=== PATIENT | female | born 1955 | race Caucasian/White ===

== ENCOUNTER 2018-06-06 11:47 | Inpatient (IN) | payer MEDICARE, OTHER ==
[2018-06-06] MEDS ORDERED: HYDROmorphone 0.5 MG/0.5 ML SYRINGE ONE (13:32)
[2018-06-06] MEDS ORDERED: Ampicillin/Sulbactam 3 GM in Sodium Chloride 0.9% 100 ML IVPB ONE (15:30)
[2018-06-06] MEDS ORDERED: Dexamethasone 4 mg/ml Vial ONE (15:40)
[2018-06-06] MEDS ORDERED: clonazePAM 1 MG TAB PO PRN ×2 (15:56→17:19)
[2018-06-06] MEDS ORDERED: Ampicillin/Sulbactam 1.5 GM in Sodium Chloride 0.9% 100 ML IVPB SCH ×2 (16:00→22:00)
[2018-06-06] MEDS ORDERED: Loperamide HCl 2 MG CAP PO PRN (17:19)
[2018-06-06] MEDS ORDERED: hydrALAZINE 20 MG/ML VIAL SLOW IVP PRN (17:30)
[2018-06-06 17:39] VITALS: BMI 25.9
[2018-06-06] MEDS: Nicotine 21 MG PATCH TD SCH (17:43)
[2018-06-06] MEDS ORDERED: Ampicillin/Sulbactam 3 GM in Sodium Chloride 0.9% 100 ML IVPB SCH (18:00)
--- NOTE | 2018-06-06 18:20 | HP ---
DATE OF CONSULTATION: 06/06/2018 CHIEF COMPLAINT: Swelling of her left side of the face. HISTORY OF PRESENT ILLNESS: Patient is a very pleasant 63-year-old female with a history of hyperten suzette and depression who presented to the hospital with complaints of left-sided facial swelling going on for about a week. The patient stated that she noticed some swelling of her left side last week, she did not seek attention. She just treated with [id number] medications, however, patient sta justyna that her left-sided facial swelling worsened for the past couple of days. The patient did go out to the ER where she was discharged home with some oral antibiotics. The patient stated that she onl y took maybe a dose or two doses of her antibiotics; however, she stated that her swelling worsened t o the point that she just could not even eat anything, so she came in to the ER for further evaluatio n. Patient denies any fevers or chills at home. The patient does states that she has poor dentition . She did have a CT of the face at the [facility] where it was noted to have left facial cellulitis with periosteal abscess involving the left angle of the mandible. There is extensive edward a involving the anterior aspect of the neck involving the strap muscles and platysma with some edema extending to the anterior mediastinal. She also had reactive lymphadenopathy. PAST MEDICAL HISTORY: Hypertension, depression. PAST SURGICAL HISTORY: She had left ankle surgery. SOCIAL HISTORY: She smokes a pack a day and she also drinks 6 packs of beer daily. Denies any drug use. FAMILY HISTORY: Father at the age of 32 with genetic heart condition. HOME MEDICATIONS: As the following: She takes omega 3 fatty acids 1 daily. She takes aspirin 81 mg daily. She takes clonazepam 1 b.i.d., lisinopril 20 mg daily. She takes Imodium 2 p.o. p.r.n., ome prazole 40 mg daily, Sertraline 100 mg p.o. daily. VESIcare 100 mg daily, and also 50 mg of tramadol . REVIEW OF SYSTEMS: All negative except for the ones mentioned above in the HPI. PHYSICAL EXAMINATION: VITAL SIGNS: She is afebrile at 99.0, her blood pressure is 114/91, 77 pulse, 16 respirations, 96% o n room air. GENERAL: She is awake, alert, oriented x3. HEENT: She has significant swelling on her left side of the facial extending all the way to the righ t lower neck area. I am unable to appreciate any lymphadenopathy. Patient has limited opening of he r mouth, but she has got severe redness and tenderness upon palpation of her left buccal cavity. She has significant dental cavities all over. LUNGS: Clear to auscultation. No rhonchi, wheezes noted. CARDIOVASCULAR: S1, S2 present. No murmurs, rubs or gallops. ABDOMEN: Soft, nontender. Bowel sounds are present x2. EXTREMITIES: No edema. Pedal are pulses present x2. NEUROLOGIC: No deficits noted. SKIN: No breakdown noted. LABORATORY DATA: As of the following: WBCs of 6.1, hemoglobin of 13.9, hematocrit of 43.4, platelet s of 192 and her chemistry indicates sodium of 141, potassium of 5.0, BUN 6, creatinine 0.70. Her al kaline phosphatase is mildly elevated at 174. ASSESSMENT AND PLAN: The patient is a very pleasant 63-year-old female who comes to the hospital wit h extensive left facial pain and swelling. 1. Facial abscess based on CT findings. We will start patient on Unasyn and also start her on some Decadron. Also, ENT has been consulted. We will start on some gentle IV fluids, also continue to mo nitor. We will appreciate during surgery to obtain cultures for further tapering down of the antibio tics. The patient currently does not appear to be in any respiratory distress; however, if she does happen to have respiratory distress, a low threshold to transfer her to the ICU. We will also obtain a chest x-ray just to make sure since she has a history of smoking. The patient denies any history of strokes or heart attacks; however, she does have a history of hypertension and she is a smoker. 2. Hypertension. We will continue on her home medications. 3. Depression. We will continue her home medications. 4. Deep venous thrombosis prophylaxis. We will put the patient on sequential compression devices fo r now.
--- NOTE | 2018-06-06 18:56 | RAD ---
RADIOGRAPH CHEST 1 VIEW: Date: 06/06/2018 Time: 6:14 p.m. HISTORY: A 63-year-old female with dyspnea. COMPARISON: None available. FINDINGS: There is no cardiomegaly, pulmonary edema, or pulmonary venous engorgement. No pneumothorax. The la teral costophrenic angles are not effaced. There is a small, plate-like density at the lateral aspect of the right lung base, consistent with ei ther scar or subsequent atelectasis. Medial to that, there is a small, faint, patchy opacity, which could be a chronic finding, such as pulmonary scar, or early acute infiltrate. IMPRESSION: 1. Nonspecific small density at the right medial lung base. 2. The rest of the visualized lung soto are clear. JN [] POS: EILEEN
[2018-06-06] MEDS: Ampicillin/Sulbactam 3 GM in Sodium Chloride 0.9% 100 ML IVPB SCH (20:17)
[2018-06-06] MEDS: Acetaminophen 325 MG TAB PO PRN (20:18)
[2018-06-06] MEDS: traMADol HCl 50 MG TAB PO PRN (20:18)
[2018-06-06] MEDS: TROSPIUM 20 MG TABLET PO SCH (20:18)
[2018-06-06] MEDS: Famotidine/PF 20 mg/2ml Vial SLOW IVP SCH (20:18)
[2018-06-06] MEDS: Dextrose 5 % And 0.9 % NaCl 1,000 ML IV SCH (20:18)
[2018-06-07] MEDS: Dexamethasone 4 mg/ml Vial SLOW IVP SCH ×4 (00:48→17:57)
[2018-06-07] MEDS: Ampicillin/Sulbactam 3 GM in Sodium Chloride 0.9% 100 ML IVPB SCH ×4 (03:58→20:37)
[2018-06-07] MEDS: Acetaminophen 325 MG TAB PO PRN ×2 (04:35→20:40)
[2018-06-07 05:32] LABS: Anion Gap 9 mmol/L (10-20); BUN (Urea Nitrogen) 5 mg/dL (9.8-20.1); Calc. Creatinine Clearance 89 mL/min (70-130); Calcium 8.6 mg/dL (7.8-10.44); Carbon Dioxide 30 mmol/L (23-31); Chloride 105 mmol/L (98-107); Estimated GFR-MDRD 82; Glucose 147 mg/dL (80-115); Potassium 4.4 mmol/L (3.5-5.1); Sodium 140 mmol/L (136-145)
[2018-06-07 05:52] LABS: Band 15 % (5-11); Hemoglobin 12.7 g/dL (12.0-16.0); Lymphocytes 11 % (21-51); MDiff Complete? YES; Mean Corpuscular HGB CONC 32.4 g/dL (32.0-36.0); Mean Corpuscular Hemoglobin 34.9 pg (27.0-31.0); Mean Platelet Volume 7.4 fL (7.4-10.4); Monocytes 1 % (0-10); Neutrophil 72 % (42-75); Platelet Count 156 thou/uL (130-400); RBC Distribution Width 15.1 % (11.5-14.5); Reactive Lymphocytes 1 % (0-10); Red Blood Cell (RBC) Count 3.65 mill/uL (4.20-5.40); White Blood Cell (WBC) Count 5.5 thou/uL (4.8-10.8)
[2018-06-07] MEDS: Dextrose 5 % And 0.9 % NaCl 1,000 ML IV SCH ×2 (06:52→19:27)
[2018-06-07] MEDS: Famotidine/PF 20 mg/2ml Vial SLOW IVP SCH ×2 (08:50→20:38)
[2018-06-07] MEDS: Lisinopril 20 MG TAB PO SCH (08:51)
[2018-06-07] MEDS ORDERED: Enoxaparin Sodium 40 MG/0.4 ML SYRINGE SC SCH (09:00)
[2018-06-07] MEDS: TROSPIUM 20 MG TABLET PO SCH ×2 (09:42→20:39)
[2018-06-07] MEDS: traMADol HCl 50 MG TAB PO PRN ×2 (12:57→20:40)
--- NOTE | 2018-06-07 13:33 | PDOC.PN ---
- Subjective Encounter Start Date: 06/07/18 Encounter Start Time: 10:30 Subjective: pt up in bed complains of hunger - Objective Resuscitation Status: Resuscitation Status FULL:Full Resuscitation Vital Signs & Weight: Vital Signs (12 hours) Temp Pulse Resp BP BP Pulse Ox 06/07/18 11:58 98.4 F 77 12 155/87 H 93 L 06/07/18 08:51 146/73 H 06/07/18 08:00 98.3 F 75 12 94 L 06/07/18 07:40 98.3 F 75 12 148/73 H 94 L 06/07/18 04:05 125/79 06/07/18 04:00 98.0 F 83 18 125/79 93 L Weight Weight 151 lb I&O: 06/06/18 06/07/18 06/08/18 06:59 06:59 06:59 Intake Total 450 Balance 450 Result Diagrams: 06/07/18 04:47 06/07/18 04:47 Phys Exam - Physical Examination left side of face swelling, pt unable to open her mouth, erythema noted Neck: no nodes, no JVD, supple, full ROM Respiratory: no wheezing, no rales, no rhonchi, wheezing present, clear to auscultation bilateral Cardiovascular: RRR, no significant murmur, no rub, gallop, irregular Gastrointestinal: soft, non-tender, no distention, positive bowel sounds Dx/Plan (1) Facial abscess Code(s): L02.01 - CUTANEOUS ABSCESS OF FACE Status: Acute (2) HTN (hypertension) Code(s): I10 - ESSENTIAL (PRIMARY) HYPERTENSION Status: Acute (3) Needs smoking cessation education Code(s): F17.200 - NICOTINE DEPENDENCE, UNSPECIFIED, UNCOMPLICATED Status: Acute (4) Alcohol abuse Code(s): F10.10 - ALCOHOL ABUSE, UNCOMPLICATED Status: Acute - Plan will continue abx for now -: ENT to see pt -: pt has been drinking alcohol will put pt on khadra protocol. * . Review of Systems - Review of Systems ENT: Other (pt's has left facial swelling) Respiratory: negative: Cough, Dry, Shortness of Breath, Hemoptysis, SOB with Excertion, Pleuritic Pain, Sputum, Wheezing Cardiovascular: negative: chest pain, palpitations, orthopnea, paroxysmal nocturnal dyspnea, edema, light headedness, other Gastrointestinal: negative: Nausea, Vomiting, Abdominal Pain, Diarrhea, Constipation, Melena, Hematochezia, Other - Medications/Allergies Allergies/Adverse Reactions: Allergies Allergy/AdvReac Type Severity Reaction Status Date / Time codeine Allergy Unverified 06/06/18 15:15 Medications: Current Medications Acetaminophen (Tylenol) 650 mg PO Q4H PRN PRN Reason: Headache/Fever or Pain Last Admin: 06/07/18 04:35 Dose: 650 mg Aspirin (Aspirin Chewable) 81 mg PO DAILY [facility] Last Admin: 06/07/18 08:51 Dose: 81 mg Cholecalciferol (Vitamin D3) 1,000 units PO DAILY [facility] Last Admin: 06/07/18 08:51 Dose: 1,000 units Clonazepam (Klonopin) 1 mg PO BID PRN PRN Reason: Anxiety Dexamethasone (Decadron) 4 mg SLOW IVP Q6HR [facility] Last Admin: 06/07/18 12:53 Dose: 4 mg Famotidine (Pepcid) 20 mg SLOW IVP Q12HR [facility] Last Admin: 06/07/18 08:50 Dose: 20 mg Hydralazine HCl (Apresoline) 5 mg SLOW IVP Q6H PRN PRN Reason: Blood Pressure Dextrose/Sodium Chloride (D5 0.9% Ns) 1,000 mls @ 100 mls/hr IV .Q10H [facility] Last Admin: 06/07/18 06:52 Dose: 1,000 mls Ampicillin Sodium/Sulbactam (Sodium 3 gm/ Sodium Chloride) 100 mls @ 200 mls/ hr IVPB 0300,0900,1500,2100 [facility] Last Admin: 06/07/18 09:40 Dose: 100 mls Lisinopril (Zestril) 20 mg PO DAILY [facility] Last Admin: 06/07/18 08:51 Dose: 20 mg Loperamide HCl (Imodium) 2 mg PO PRN PRN PRN Reason: Diarrhea/Loose Stools Morphine Sulfate (Morphine) 2 mg SLOW IVP Q4H PRN PRN Reason: Mild Pain (1-3) Nicotine (Nicoderm Patch) 21 mg TD Q24H [facility] Last Admin: 06/06/18 17:43 Dose: 21 mg Pantoprazole Sodium (Protonix) 40 mg PO DAILY [facility] Last Admin: 06/07/18 08:51 Dose: 40 mg Sertraline HCl (Zoloft) 100 mg PO DAILY [facility] Last Admin: 06/07/18 08:51 Dose: 100 mg Tramadol HCl (Ultram) 50 mg PO Q6HR PRN PRN Reason: Pain 4-6 Last Admin: 06/07/18 12:57 Dose: 50 mg Trospium (Trospium) 20 mg PO BID [facility] Last Admin: 06/07/18 09:42 Dose: 20 mg
[2018-06-07] MEDS ORDERED: Lorazepam 1 MG TAB PO PRN (13:34)
[2018-06-07] MEDS: Nicotine 21 MG PATCH TD SCH (18:01)
[2018-06-08] MEDS: Dexamethasone 4 mg/ml Vial SLOW IVP SCH ×5 (00:56→18:05)
[2018-06-08] MEDS: Acetaminophen 325 MG TAB PO PRN ×3 (01:02→15:31)
[2018-06-08] MEDS: Ampicillin/Sulbactam 3 GM in Sodium Chloride 0.9% 100 ML IVPB SCH ×4 (03:30→20:53)
[2018-06-08] MEDS: Dextrose 5 % And 0.9 % NaCl 1,000 ML IV SCH ×2 (03:32→13:00)
--- NOTE | 2018-06-08 04:24 | CON ---
DATE OF CONSULTATION: 06/06/2018 CONSULTING PHYSICIAN: Catrina Ochoa MD of the hospitalist service. HISTORY OF PRESENT ILLNESS: This is a 63-year-old female who reports approximately 1 week history of dental pain in her left posterior mandibular molar. The patient states that she awoke the day prior to admission with signs of swelling in the left face region. On waking this morning, the patient says that the swelling had progressed significantly even after having presented to the emergency room on the day prior, at which time she was given some p.o. antibiotics to begin as an outpatient. With this increased swelling of the left face, the patient presented back to the hospital in [place]. CT scan was performed and an abscess with significant left facial cellulitis was found on the CT scan. The patient was transferred to [facility] for higher level of care. I was consulted for evaluation and management. PAST MEDICAL HISTORY: Positive for depression, anxiety, hypertension, gastroesophageal reflux disease. HOME MEDICATIONS: Klonopin, sertraline, Prilosec, fish oil, lisinopril. PAST SURGICAL HISTORY: Repair of facial fractures, broken ankle repair, bilateral tubal ligation. ALLERGIES: CODEINE. SOCIAL HISTORY: Positive for smoking and approximately 3-4 alcoholic drinks a day. REVIEW OF SYSTEMS: The patient reports difficulty opening her mouth completely and reports pain in the left posterior jaw and left cheek region. Denies problems or pain on swallowing. Denies breathing problems. PHYSICAL EXAMINATION: VITAL SIGNS: Within normal limits. GENERAL: Alert and oriented x3. No acute distress. HEAD AND NECK: The patient has moderate edema over the left perimandibular and buccal regions in the area of the masseter. The inferior border of the mandible is palpable throughout. The submandibular space is grossly soft without significant signs of cellulitis and no signs of abscess. The patient has trismus to approximately two finger widths. The intraoral examination is difficult due to this restricted opening and patient's discomfort on manipulation of the cheek, but patient is noted to have a chronic periodontal disease with multiple carious teeth and retained root fragments. Adequate examination of the left posterior mandibular molar is inadequate. Floor of mouth is soft. No signs of oropharyngeal swelling. NECK: Trachea is midline without any significant swellings in the neck bilaterally. No signs of cellulitis or obvious signs of abscess. LABORATORY DATA: White blood cell count is within normal limits. CT scan of face and neck shows a fluid collection consistent with an abscess in the submasseteric space region on the left. The patient also has significant overlying edema and signs of cellulitis in the more superficial tissues of the left face and cheek region. The posterior most left mandibular molar does not appear to be a completely healthy tooth, but their are not radiographic signs consistent with definitive connection between the abscess and this tooth. ASSESSMENT: 1. Left submasseteric space abscess with associated overlying soft tissue cellulitis of the left cheek and perimandibular tissues. 2. Questionable etiology of the submasseteric space abscess, although odontogenic source is definitely the highest likelihood with the posterior most left mandibular molar as the most likely cause, particularly since pain in this region preceded patient's current state by approximately 1 week. PLAN: 1. The patient was admitted to the Hospitalist Service for IV antibiotics and patient got 8 mg of Decadron as well IV. 2. The patient is okay for a diet at this time and we will allow time for the antibiotics to begin taking effect prior to the reevaluation and timing of the procedure for incision and drainage of the abscess. 3. The patient will be kept n.p.o. after midnight for potential trip to the operating room tomorrow for incision and drainage of the abscess. 4. Out of bed at least t.i.d. MTDD
[2018-06-08] MEDS: TROSPIUM 20 MG TABLET PO SCH ×2 (09:26→20:53)
[2018-06-08] MEDS: Famotidine/PF 20 mg/2ml Vial SLOW IVP SCH ×2 (09:26→20:57)
[2018-06-08] MEDS: Lisinopril 20 MG TAB PO SCH (09:26)
[2018-06-08] MEDS ORDERED: Bacitracin Zinc Ointment 30 gm TUBE ONE (10:38)
[2018-06-08] MEDS ORDERED: Ophthalmic Irrigation Solution 15 ML ONE (10:38)
[2018-06-08] MEDS ORDERED: Chlorhexidine Gluconate 15 ML UDCUP SSP ONE ×2 (10:38→15:51)
[2018-06-08] MEDS ORDERED: Lidocaine 1% w/Epinephrine 1:100K 30 ML VIAL ONE (10:38)
[2018-06-08] MEDS ORDERED: Fentanyl 100 MCG/2 ML VIAL ONE ×3 (10:44→13:01)
[2018-06-08] MEDS ORDERED: Oxymetazoline HCl 0.05% ( 15 ML ) ONE (10:44)
[2018-06-08] MEDS ORDERED: Lidocaine 2% Jelly 5 ML TUBE ONE (10:45)
[2018-06-08] MEDS ORDERED: Midazolam HCl 2 mg/2 ml Vial ONE (11:06)
[2018-06-08] MEDS ORDERED: Ondansetron HCl/PF 4 MG/2 ML Vial IVP PRN (12:24)
[2018-06-08] MEDS ORDERED: Promethazine HCl 25 MG/ML VIAL SLOW IVP PRN (12:24)
[2018-06-08] MEDS ORDERED: Promethazine HCl 25 MG/ML VIAL IM PRN (12:24)
[2018-06-08] MEDS ORDERED: Ondansetron HCl/PF 4 MG/2 ML Vial ONE (12:38)
[2018-06-08] MEDS ORDERED: PROPOFOL 200 MG/20 ML VIAL ONE (12:38)
[2018-06-08] MEDS ORDERED: Lidocaine 1% PF 5 ML VIAL ONE (12:38)
[2018-06-08] MEDS ORDERED: Glycopyrrolate 0.2 MG/ML 5 ML SYRINGE ONE (12:38)
[2018-06-08] MEDS: traMADol HCl 50 MG TAB PO PRN (15:31)
--- NOTE | 2018-06-08 15:55 | PDOC.PN ---
- Subjective Encounter Start Date: 06/08/18 Encounter Start Time: 15:25 Subjective: f/u for left submandibular abscess with I&D 06/08/18. Currently receiving -: Unasyn and Dexamethasone. Painful when opening mouth and still -: swollen but less in last 24h. - Objective Resuscitation Status: Resuscitation Status FULL:Full Resuscitation MAR Reviewed: Yes Vital Signs & Weight: Vital Signs (12 hours) Temp Pulse Resp BP BP Pulse Ox 06/08/18 15:24 71 182/104 H 06/08/18 09:26 146/73 H 06/08/18 08:17 98.2 F 74 18 164/87 H 93 L 06/08/18 08:00 98.2 F 74 18 93 L 06/08/18 04:00 98.3 F 75 16 165/101 H 97 Weight Weight 151 lb I&O: 06/07/18 06/08/18 06/09/18 06:59 06:59 06:59 Intake Total 450 1530 Balance 450 1530 Result Diagrams: 06/07/18 04:47 06/07/18 04:47 Additional Labs: Microbiology 06/08/18 11:43 Mandible - Left Bacterial Culture - Preliminary Phys Exam - Physical Examination Constitutional: NAD alert, responsive L facial edema and TTP in mandibular region HEENT: PERRLA, sclera anicteric, oral pharynx no lesions Neck: no nodes, no JVD, full ROM Respiratory: no wheezing, no rales, no rhonchi, clear to auscultation bilateral S1, S2 Cardiovascular: RRR, no significant murmur, no rub, gallop Gastrointestinal: soft, non-tender, no distention, positive bowel sounds Musculoskeletal: no edema, pulses present, edema present Neurological: non-focal, normal sensation, moves all 4 limbs Psychiatric: normal affect, A&O x 3 Skin: no rash, normal turgor, cap refill <2 seconds Dx/Plan (1) Facial abscess Code(s): L02.01 - CUTANEOUS ABSCESS OF FACE Status: Acute Comment: s/p I&D , continue pain control, IV Unasyn, await final cx results, continue Decadron (2) Tobacco abuse Code(s): Z72.0 - TOBACCO USE Status: Acute Comment: Tobacco cessation resources, Nicotine patch (3) Alcohol abuse Code(s): F10.10 - ALCOHOL ABUSE, UNCOMPLICATED Status: Acute Comment: ASE protocol, Clonazepam BID (4) HTN (hypertension) Code(s): I10 - ESSENTIAL (PRIMARY) HYPERTENSION Status: Chronic Qualifiers: Hypertension type: essential hypertension Qualified Code(s): I10 - Essential (primary) hypertension Comment: Continue Lisinopril, increase Hydralazine 10mg IV q6h prn - Plan plan discussed w/ family, continue antibiotics, social worker clinical, out of bed/ ambulate, DVT proph w/SCDs Stable overall -: Continue Unasyn -: Continue Decadron IV -: Add Toradol 30mg IV q6h -: Chlorhexidine SSP * Likely home in 24h
[2018-06-08] MEDS ORDERED: hydrALAZINE 20 MG/ML VIAL SLOW IVP PRN (15:57)
[2018-06-08] MEDS: Nicotine 21 MG PATCH TD SCH (16:35)
[2018-06-08] MEDS: Ketorolac Tromethamine 30 MG/ML VIAL IVP SCH (18:05)
[2018-06-08] MEDS: Chlorhexidine Gluconate 15 ML UDCUP SSP SCH (20:52)
[2018-06-09] MEDS: Ketorolac Tromethamine 30 MG/ML VIAL IVP SCH ×3 (00:47→11:43)
[2018-06-09] MEDS: Dexamethasone 4 mg/ml Vial SLOW IVP SCH ×3 (00:48→11:43)
[2018-06-09] MEDS: Ampicillin/Sulbactam 3 GM in Sodium Chloride 0.9% 100 ML IVPB SCH ×3 (02:56→14:26)
[2018-06-09] MEDS: Dextrose 5 % And 0.9 % NaCl 1,000 ML IV SCH ×2 (08:02→08:59)
[2018-06-09] MEDS: Chlorhexidine Gluconate 15 ML UDCUP SSP SCH (08:57)
[2018-06-09] MEDS: TROSPIUM 20 MG TABLET PO SCH (08:58)
[2018-06-09] MEDS: Lisinopril 20 MG TAB PO SCH (08:58)
[2018-06-09] MEDS: Famotidine/PF 20 mg/2ml Vial SLOW IVP SCH (08:59)
[2018-06-09] MEDS: Acetaminophen 325 MG TAB PO PRN (09:11)
[2018-06-09 16:31] VITALS: BP 156/87; TEMP 97.9
[2018-06-09] MEDS: Nicotine 21 MG PATCH TD SCH (17:04)
--- NOTE | 2018-06-09 23:09 | DIS ---
DATE OF ADMISSION: 06/06/2018 DATE OF DISCHARGE: 06/09/2018 DISCHARGE DIAGNOSES: 1. Left submandibular abscess. 2. Status post incision and drainage of left submandibular abscess on 06/08/2018. 3. Status post tooth extraction of #19, #20, and #22 on 06/08/2018. 4. Tobacco abuse. 5. Alcohol abuse. 6. Hypertension, stable. CONSULTATIONS: Dr. Marion with oral maxillofacial surgery service. PERTINENT LABORATORY DATA AND X-RAY FINDINGS: Basic metabolic profile within normal limits. CBC alfredo wed a white blood cell count of 5.5 with 15% bandemia. Left mandibular bacterial culture dated 06/08 showed no growth at [address] of the neck soft tissues dated 06/06/2018 showed left facial cellulitis with periosteal abscess involving left angle of the mandible. Extensive edema of the ante rior aspect of the neck noted. Numerous dental caries noted. Emphysematous changes of the upper karen g soto. Reactive lymphadenopathy in the left submandibular region. Portable chest x-ray dated on 06/06/2018 showed subsegmental atelectasis of the right lung base. Chronic changes in bilateral lung soto consistent with hyperinflation. HOSPITAL COURSE: Patient was admitted to the surgical vieyra after initially presenting with left faci al swelling and cellulitis with concern for abscess. Patient underwent CT imaging of the neck and so ft tissues of the face showing evidence of extensive cellulitis of the left submandibular abscess. P wagner was evaluated by the Oral Maxillofacial Surgery Service after initiation of antibiotic therapy with Unasyn and IV Decadron. Patient underwent surgical intervention to include transoral incision and drainage of the left submasseteric space abscess as well as extraction of teeth #19, #20, and #22 . Patient continued on IV antibiotic therapy with Unasyn as well as chlorhexidine oral rinse. Patie nt clinically improved with pain control anti-inflammatories and IV fluids. Culture results prelimin arily showing no growth at 24 hours from the left mandibular region. Patient will transition to Augm entin 875 mg b.i.d. to complete a 10-day course of antibiotic therapy after discharge. I have examin ed the patient at the time of discharge and discussed followup instructions. Patient overall clinica lly stable, tolerating a liquid diet. Patient ready for discharge on 06/09/2018. DISCHARGE MEDICATIONS: 1. Augmentin 875 mg one tab p.o. b.i.d. x10 days. 2. Aspirin enteric-coated 81 mg one tab p.o. daily. 3. Vitamin D3 of 1000 units p.o. daily. 4. Clonazepam 1 mg p.o. b.i.d. p.r.n. 5. Lisinopril 20 mg p.o. daily. 6. Loperamide 2 mg p.o. daily p.r.n. 7. [place] 3 fatty acids one capsule p.o. daily. 8. Omeprazole 40 mg p.o. daily. 9. Red-yeast rice extract 1200 mg p.o. b.i.d. 10. Zoloft 100 mg p.o. daily. 11. VESIcare 10 mg p.o. daily. 12. Tramadol 50 mg p.o. every 6 hours p.r.n. 13. Chlorhexidine gluconate oral rinse 15 mL swish and spit b.i.d. FOLLOWUP: Patient may follow up with her primary care provider, Dr. Terrell within 7 days of disch arge. Patient will follow up with Dr. Prince Marion and to call his office for appointment time a nd date. CONDITION ON DISCHARGE: Stable. ACTIVITY: Ad tennille. DIET: Heart healthy, mechanical soft. CODE STATUS: FULL. DISPOSITION: Home on 06/09/2018. Total time preparing and coordinating discharge 35 minutes.
--- NOTE | 2018-06-10 16:56 | OP ---
DATE OF PROCEDURE: 06/09/2018 PREOPERATIVE DIAGNOSES: 1. Left masseteric space abscess. 2. Infected teeth 19, 20, 22. POSTOPERATIVE DIAGNOSES: 1. Left masseteric space abscess. 2. Infected teeth 19, 20, 22. PROCEDURES: 1. Transoral incision and drainage of left masseteric space abscess. 2. Removal of teeth 19, 20, 22. INDICATIONS: This is a 63-year-old female who presented to the emergency department on multiple occasions due to pain and swelling in the left posterior mandible. On this occasion, I was consulted for evaluation and management. The patient was admitted for intravenous antibiotics due to large left facial cellulitis. The patient was also found to have a small left masseteric space abscess for which she is being brought to the operating room at this time. This abscess is decided to be secondary to infected posterior mandibular teeth. SURGEON: Prince Marion D.D.S., M.D. DESCRIPTION OF OPERATION: The patient was identified in the preoperative holding and all questions were answered. The patient was then taken to the operating room, transferred to the operating room table in supine position. She was subsequently intubated via nasal intubation procedure by the Anesthesia Service and a general anesthetic was induced without complication. Surgical timeout was performed. Patient was prepped and draped in a sterile fashion and the oral cavity was prepped with Peridex oral rinse. A throat pack was placed. Local anesthetic was delivered to the left mandible. A 15 blade was used to make a hockey stick incision over bone from the distal buccal aspect of tooth # 19 after extension crestally back to the area of tooth #18. This incision was continued crestally to the tooth 20 through 22 region. A full thickness mucoperiosteal flap was developed on the lateral aspect of the mandible using a periosteal elevator. This dissection continued posteriorly into the masseteric space where significant purulence was obtained. A culture of the purulence was taken and sent to the laboratory for analysis. The masseteric space was opened fully and drained off all pus. This dissection continued back towards the angle of the mandible and inferiorly towards the inferior border to ensure that the entire abscess cavity was decompressed. After this was accomplished, attention was turned towards removal of the infected teeth. Tooth #19 was mobilized with forceps and the mesial root fractured off. The distal root and crown were then removed with forceps. Conservative ostectomy was performed around the mesial root and the root was subsequently elevated out and removed with forceps. Tooth #20 was grasped with a rongeur and removed. Tooth #22 was grasped with a rongeur with small amount of lingual and buccal plate engaged as well to get down to portion of the root that would be stable enough to be mobilized. Tooth #22 was removed in this fashion. A curet was performed of 19 , 20, 22. The alveolar bone was smoothed at this time and copious irrigation of both the sockets and all surgical wounds including the masseteric space was accomplished using the bacitracin infused normal saline. After copious irrigation and no further signs of pus, a 0.25-inch [place] drain was advanced into the masseteric space and secured to the tissue with 2-0 Prolene drain stitch. A 4-0 chromic gut suture was then used to reposition the soft tissues over the residual ridge in the 19th or the 22 region and one 4-0 chromic gut suture was placed into the vertical releasing incision out over the external oblique ridge and ascending ramus region. The oral cavity was irrigated and suctioned free of debris and the throat pack was removed. The oropharynx was suctioned at this time and an orogastric tube was placed, suctioned and removed. A gauze pressure pack was placed over the left posterior mandible to catch any drainage. The patient is be waking up and being extubated. The patient was turned over to Anesthesia and was eventually extubated without complication. INTRAVENOUS FLUIDS: Please see anesthetic record. ESTIMATED BLOOD LOSS: Minimal. SPECIMENS: Purulence from the left masseteric space. IMPLANTS: None. DRAINS: A 0.25-inch [place] drain to the masseteric space. IMPLANTS: None. FINDINGS: Large, foul purulence from the left masseteric space with infected teeth 19, 20, 22. DISPOSITION: The patient tolerated the procedure well. She was extubated, and transferred to the recovery room in good condition. AMANDA
== END 2018-06-09 17:45 | disposition home or self-care (01) | DRG 159 ==
LOC: ERS 11:47 → SURG A 16:17
PROVIDERS: ADMIT Internal Medicine; ATTEND Internal Medicine
PROC: 0CDXXZ1 Extraction of Lower Tooth, Multiple, External Approach (ICD-10-PCS; principal; 2018-06-06)
PROC: 0W953ZZ Drainage of Lower Jaw, Percutaneous Approach (ICD-10-PCS; 2018-06-06)
DX: K12.2 Cellulitis and abscess of mouth (principal); I10 Essential (primary) hypertension; F32.9 Major depressive disorder, single episode, unspecified; F17.210 Nicotine dependence, cigarettes, uncomplicated; Z79.899 Other long term (current) drug therapy; Z79.82 Long term (current) use of aspirin; M27.2 Inflammatory conditions of jaws; F10.10 Alcohol abuse, uncomplicated; F41.9 Anxiety disorder, unspecified; K21.9 Gastro-esophageal reflux disease without esophagitis; Z88.5 Allergy status to narcotic agent
CPT/HCPCS: 36415; 71045; 80048; 85025; 87070; 87205; 96365; 96375; J0295; J0360; J1100; J1170; J1885; J2001; J2250; J2270; J2405; J2704; J3010; J3490; J7042; J7050; S0028